=== PATIENT | male | born 1965 | race Caucasian/White ===

== ENCOUNTER 2019-12-09 05:04 | Observation (INO) ==
[2019-12-09] MEDS ORDERED: ACETAMINOPHEN 325 MG TABLET PO PRN (06:15)
[2019-12-09] MEDS ORDERED: NICOTINE 21 MG/24 HR PATCH TRANSDERM PRN (06:15)
[2019-12-09] MEDS ORDERED: ONDANSETRON 4 MG/2 ML VIAL IV PRN (06:15)
[2019-12-09] MEDS ORDERED: GLUCAGON 1 MG VIAL IM PRN (06:15)
[2019-12-09] MEDS ORDERED: LORazepam 2 MG/1 ML VIAL IV PRN (06:20)
[2019-12-09] MEDS ORDERED: DEXTROSE 10% 250 ML BAG IV PRN (06:21)
[2019-12-09] MEDS: INSULIN LISPRO 100 UNIT/ML SUBCUT SCH ×4 (09:18→20:39)
[2019-12-09] MEDS: THIAMINE 100 MG TABLET PO SCH (09:18)
[2019-12-09] MEDS: FOLIC ACID 1 MG TABLET PO SCH (09:18)
[2019-12-09] MEDS: PANTOPRAZOLE 40 MG TABLET PO SCH (09:18)
[2019-12-09] MEDS: SODIUM CHLORIDE 0.45% 1,000 ML IV SCH (09:19)
[2019-12-09] MEDS ORDERED: NITROGLYCERIN SL 0.4 MG TABLET SL PRN (09:31)
[2019-12-09] MEDS ORDERED: ALBUTEROL/IPRATROPIUM 3 ML NEB RESP TX PRN (09:31)
[2019-12-09] MEDS ORDERED: SACUBITRIL VALSARTAN PO SCH (09:45)
[2019-12-09] MEDS: carvediloL 6.25 MG TABLET PO SCH ×2 (10:55→20:30)
[2019-12-09] MEDS: FUROSEMIDE 20 MG TABLET PO SCH (10:55)
[2019-12-09] MEDS: RIVAROXABAN 15 MG TABLET PO SCH ×2 (10:55→20:30)
[2019-12-09] MEDS: ALBUTEROL/IPRATROPIUM 3 ML NEB RESP TX SCH ×3 (11:15→20:10)
[2019-12-09] MEDS: FLUTICASONE/SALMETEROL 250-50 DISKUS 14 DOSE INH SCH ×2 (13:03→20:33)
[2019-12-09] MEDS ORDERED: AZITHROMYCIN 250 MG TABLET PO ONE (13:32)
[2019-12-09] MEDS ORDERED: cefTRIAXone 500 MG VIAL IM SCH (14:00)
[2019-12-09] MEDS ORDERED: TAMSULOSIN 0.4 MG CAPSULE PO ONE (14:33)
[2019-12-09] MEDS ORDERED: cefTRIAXone 500 MG VIAL IV SCH (16:17)
[2019-12-09] MEDS ORDERED: LIDOCAINE 2% TOP JELLY 20 ML VIAL INTRAURETH ONE (18:17)
[2019-12-09] MEDS: cefTRIAXone 500 MG in SYRINGE 1 EACH IV SCH (18:51)
[2019-12-09 19:12] LABS: Amorphous Crystals,Urine Occasional /HPF (Few); Apearance,Urine Slightly Hazy (Clear); Bacteria,Urine Occasional /HPF (Few); Bilirubin,Urine Negative (Negative); Blood, Urine Large mg/dL (Negative); Glucose,Urine (UA) Negative (Negative); Hyaline Casts,Urine 6 /LPF (0-3); Ketones,Urine Negative (Negative); Mucus,Urine Occasional /LPF (Occasional); Nitrite,Urine Negative (Negative); Protein,Urine Negative; RBC,Urine 376 /HPF (0-4); Urine Color Yellow (Yellow); Urine Specific Gravity 1.014 (1.001-1.035); WBC,Urine 17 /HPF (0-6)
[2019-12-09] MEDS: SACUBITRIL/VALSARTAN 49-51 MG TABLET PO SCH (20:30)
[2019-12-09] MEDS: LORazepam 1 MG TABLET PO PRN (23:13)
[2019-12-10] MEDS: ALBUTEROL/IPRATROPIUM 3 ML NEB RESP TX SCH ×4 (07:05→19:05)
[2019-12-10] MEDS: NICOTINE 21 MG/24 HR PATCH TRANSDERM SCH (10:08)
[2019-12-10] MEDS: FUROSEMIDE 20 MG TABLET PO SCH (10:09)
[2019-12-10] MEDS: RIVAROXABAN 15 MG TABLET PO SCH ×2 (10:10→21:57)
[2019-12-10] MEDS: PANTOPRAZOLE 40 MG TABLET PO SCH (10:10)
[2019-12-10] MEDS: THIAMINE 100 MG TABLET PO SCH (10:10)
[2019-12-10] MEDS: TAMSULOSIN 0.4 MG CAPSULE PO SCH ×2 (10:10→21:58)
[2019-12-10] MEDS: carvediloL 6.25 MG TABLET PO SCH ×2 (10:10→21:58)
[2019-12-10] MEDS: ATORVASTATIN 40 MG TABLET PO SCH (10:11)
[2019-12-10] MEDS: DOCUSATE SODIUM 100 MG CAPSULE PO PRN (10:11)
[2019-12-10] MEDS: FOLIC ACID 1 MG TABLET PO SCH (10:11)
[2019-12-10] MEDS: SACUBITRIL/VALSARTAN 49-51 MG TABLET PO SCH ×2 (10:11→21:57)
[2019-12-10] MEDS: FLUTICASONE/SALMETEROL 250-50 DISKUS 14 DOSE INH SCH ×2 (10:15→21:59)
[2019-12-10] MEDS: INSULIN LISPRO 100 UNIT/ML SUBCUT SCH ×4 (10:16→21:58)
[2019-12-10] MEDS: FINASTERIDE 5 MG TABLET PO SCH (12:18)
[2019-12-10] MEDS: LORazepam 1 MG TABLET PO PRN (20:30)
[2019-12-10] MEDS: cefTRIAXone 500 MG in SYRINGE 1 EACH IV SCH (21:55)
[2019-12-10] MEDS: SODIUM CHLORIDE 0.45% 1,000 ML IV SCH (22:54)
[2019-12-11] MEDS: ALBUTEROL/IPRATROPIUM 3 ML NEB RESP TX SCH ×2 (07:24→10:40)
[2019-12-11] MEDS: INSULIN LISPRO 100 UNIT/ML SUBCUT SCH (08:30)
[2019-12-11] MEDS: NICOTINE 21 MG/24 HR PATCH TRANSDERM SCH (09:10)
[2019-12-11] MEDS: TAMSULOSIN 0.4 MG CAPSULE PO SCH (09:10)
[2019-12-11] MEDS: RIVAROXABAN 15 MG TABLET PO SCH (09:10)
[2019-12-11] MEDS: PANTOPRAZOLE 40 MG TABLET PO SCH (09:10)
[2019-12-11] MEDS: FINASTERIDE 5 MG TABLET PO SCH (09:10)
[2019-12-11] MEDS: SACUBITRIL/VALSARTAN 49-51 MG TABLET PO SCH (09:10)
[2019-12-11] MEDS: ATORVASTATIN 40 MG TABLET PO SCH (09:10)
[2019-12-11] MEDS: THIAMINE 100 MG TABLET PO SCH (09:11)
[2019-12-11] MEDS: DOCUSATE SODIUM 100 MG CAPSULE PO PRN (09:11)
[2019-12-11] MEDS: FOLIC ACID 1 MG TABLET PO SCH (09:11)
[2019-12-11] MEDS: FLUTICASONE/SALMETEROL 250-50 DISKUS 14 DOSE INH SCH (09:19)
[2019-12-11] MEDS: carvediloL 6.25 MG TABLET PO SCH (09:20)
[2019-12-11] MEDS: FUROSEMIDE 20 MG TABLET PO SCH (09:20)
[2019-12-11 12:07] VITALS: BP 115/77
== END 2019-12-11 12:10 ==
LOC: EDBD → EDUNIT# → N.ED 05:04 → N.EDINP 05:04 → SUATTDRO 06:15 → N.4E 08:16
PROVIDERS: ADMIT Internal Medicine; ATTEND Internal Medicine